=== PATIENT | female | born 1960 | race Caucasian/White ===

== ENCOUNTER 2016-04-09 06:33 | Day surgery (SDC) | payer OTHER ==
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
[~2016-04-09 06:33] MED LIST: APRACLONIDINE 0.5% OPHTH 5 ML BTL OP ONE; BUPIVACAINE HCL/PF 0.75% 10 ML VIAL OP ONE; CIPROFLOXACIN 0.3% OPHTH 25 DROP/2.5 ML BTL OP SCH; CYCLOPENTOLATE HCL 1% OPHTH 2 ML BTL OP SCH; FLURBIPROFEN 0.03% OPHTH 2.5 ML BTL OP SCH; PHENYLEPHRINE 2.5% OPHTH 10 DROP/2 ML BTL OP SCH
[2016-04-09] MEDS ORDERED: FLURBIPROFEN 0.03% OPHTH 2.5 ML BTL ONE (06:53)
[2016-04-09] MEDS ORDERED: APRACLONIDINE 0.5% OPHTH 5 ML BTL ONE (06:54)
[2016-04-09] MEDS ORDERED: BUPIVACAINE HCL/PF 0.75% 10 ML VIAL ONE (06:54)
[2016-04-09] MEDS ORDERED: CYCLOPENTOLATE HCL 1% OPHTH 2 ML BTL ONE (06:54)
[2016-04-09] MEDS ORDERED: PHENYLEPHRINE 2.5% OPHTH 10 DROP/2 ML BTL ONE (06:54)
[2016-04-09] MEDS ORDERED: CIPROFLOXACIN 0.3% OPHTH 25 DROP/2.5 ML BTL ONE ×2 (06:54→07:02)
[2016-04-09] MEDS ORDERED: BACITRACIN OPHTH OINTMENT 3.5 GM TUBE ONE (06:56)
[2016-04-09] MEDS ORDERED: KETOROLAC 0.45% OPHTH 1 DROP/EACH DROPERETTE ONE (06:57)
[2016-04-09] MEDS ORDERED: LIDOCAINE HCL/PF 1% 30 ML VIAL ONE (06:57)
[2016-04-09] MEDS ORDERED: CHONDROITIN/HYALURONIDATE OPHT 0.5 ML KIT ONE (06:57)
[2016-04-09 07:01] VITALS: TEMP 97.2
[2016-04-09] MEDS ORDERED: MIDAZOLAM HCL 2 MG/2 ML VIAL ONE (08:07)
[2016-04-09 08:48] VITALS: BP 129/85; PULSE 69; RESP 16; O2SAT 96
--- NOTE | 2016-04-09 14:35 | OPERATIVE REPORT ---
DATE OF SURGERY: 04/09/2016. SURGEON: Orlin Palm MD ANESTHESIA: Topical with monitored anesthesia care. PREOPERATIVE DIAGNOSIS: Cataract, right eye. POSTOPERATIVE DIAGNOSIS: Cataract, right eye. OPERATION PERFORMED: Cataract extraction by phacoemulsification with posterior chamber intraocular lens, right eye. COMPLICATIONS: None. PROCEDURE: The patient was brought to the operating room where she was placed in the supine position. After the instillation of additional tetracaine drops in the right eye, the eye was prepped and draped in the usual sterile ophthalmic manner. This was difficult as the patient had severe blepharospasm throughout the procedure. A lid speculum was placed in the right eye, after which an inferior paracentesis was fashioned with 1-mm steel keratome, and 0.2 mL of 1% nonpreserved lidocaine was injected intracamerally followed by Viscoat. A temporal clear corneal incision of 3-mm width was fashioned with a steel keratome. A continuous curvilinear capsulorrhexis was fashioned with a bent- needle cystitome and Utrata forceps under Viscoat. Hydrodissection was carried out with balanced salt solution on an intraocular cannula. The nucleus was noted to rotate freely. Phacoemulsification proceeded in a two-handed fashion utilizing typical phacoemulsification times and felder, as the nucleus was noted to be 2+ dense. Residual cortical material was then removed with the automated irrigation-aspiration handpiece. The anterior chamber and capsular bag were then reinflated with Provisc, after which an AcrySof model SA60AT foldable acrylic intraocular lens of 15.5 diopters power was placed into the capsular bag. The haptics were rotated with a Y hook and the intraocular lens was noted to center well. Residual viscoelastic was then removed with the automated irrigation-aspiration handpiece , after which the wound edges were hydrated with balanced salt solution. The intraocular pressure at the conclusion of the procedure was physiologic, and there was no evidence of wound leakage upon testing with a Weck Gay sponge. Acular drops and bacitracin ointment were placed in the right eye, and the patient was brought to the recovery area, having tolerated the procedure well. She was given full postoperative instructions. VIKTORIA
== END 2016-04-09 09:00 | disposition home or self-care (01) ==
LOC: SDS 06:33
PROVIDERS: ATTEND Ophthalmology
DX: H25.011 Cortical age-related cataract, right eye (principal); I10 Essential (primary) hypertension; M12.561 Traumatic arthropathy, right knee; E78.5 Hyperlipidemia, unspecified; Z79.899 Other long term (current) drug therapy
CPT/HCPCS: J0171; J2250; V2632